=== PATIENT | female | born 2000 | race Caucasian/White ===

== ENCOUNTER → 2023-03-29 10:30 | Outpatient (REF) | payer BC, OTHER, SELFPAY ==
[2023-03-29 12:54] LABS: % Basophils 0.8 % (0-2); % Eosinophils 2.7 % (0-6); % Immature Granulocytes 0.4 % (0-0.5); % Lymphocytes 35.7 % (20.5-51.1); % Monocytes 5.9 % (1.7-9.3); % Neutrophils 54.5 % (42.2-75.2); Absolute Basophils 0.1 10^3/uL (0-0.2); Absolute Eosinophils 0.2 10^3/uL (0-0.7); Absolute Lymphocytes 2.6 10^3/uL (1.2-3.4); Absolute Monocytes 0.4 10^3/uL (0.1-0.6); Hematocrit 37.9 % (37.0-47.0); Hemoglobin 12.9 g/dL (12.0-16.0); Mean Corpuscular Hgb 29.7 pg (27.0-31.0); Mean Corpuscular Volume 87.3 fL (81.0-99.0); Mean Platelet Volume 9.5 fL (7.4-10.4); Nucleated Red Blood Cells % 0 %; Platelet Count 382 10^3/uL (130-400); Red Blood Cell Count 4.34 10^6/uL (4.20-5.40); Red Cell Dist. Width 12.2 % (11.5-14.5); White Blood Cell Count 7.3 10^3/uL (4.8-10.8)
[2023-03-29 13:12] LABS: HDL Cholesterol 58 mg/dl; LDL Cholesterol, Calculated 106 mg/dl; Total Cholesterol 193 mg/dl (50-199); Triglyceride 146 mg/dl (10-149); Very Low Density Lipoprotein 29 mg/dl (0-30)
[2023-03-29 13:26] LABS: Beta HCG Quantitative < 2.39 mIU/ml; FSH 5.1 mIU/ml; Luteinizing Hormone 9.34 mIU/ml; Prolactin 8.3 ng/ml (3.0-18.6)
[2023-03-29 13:40] LABS: TSH Reflex To Free T4 2.14 uIU/ml (0.47-4.68)
[2023-03-29 14:28] LABS: Glycohemoglobin (HgbA1c) 5.3 % (4.0-5.6)
[2023-04-02 00:52] LABS: DHEA Sulfate 131 ug/dL (99-340)
[2023-04-02 13:48] LABS: Insulin, Random 19 uIU/mL
[2023-04-04 05:26] LABS: Free Testosterone 8.5 pg/mL (0.8-7.4); Sex Hormone Binding Globulin 27 nmol/L (25-122); Total Testosterone,Female/Chil 46 ng/dL (9-55)
== END ==
LOC: HWRAD 10:30
PROVIDERS: ATTENDING PHYSICIAN Nurse Practitioner Family; FAMILY PHYSICIAN Family Medicine
DX: N91.2 Amenorrhea, unspecified (principal)
CPT/HCPCS: 36415; 76830; 76856; 80061; 82627; 82670; 83001; 83002; 83036; 83525; 84146; 84270; 84402; 84403; 84443; 84702; 85025